=== PATIENT | male | born 1940 | race African-American/Black ===

== ENCOUNTER 2020-11-24 02:44 | Inpatient (IN) | payer OTHER ==
[~2020-11-24] VITALS: Ht 182.9 cm; Wt 74.4 kg
[2020-11-24] MEDS ORDERED: LEVETIRACETAM 500MG PREMIX 100 ML IV ONE (03:15)
[2020-11-24] MEDS ORDERED: SODIUM CHLORIDE 0.9% 1,000 ML IV ONE (03:15)
[2020-11-24 03:58] LABS: HEMOGLOBIN. 14.7 g/dL (14.0-18.0); MEAN CORPUSCULAR HEMOGLOBIN 35.4 pg (28.0-32.0)
[2020-11-24 04:01] LABS: HEMATOCRIT. 45.5 % (42.0-52.0); MEAN CORPUSCULAR VOLUME 109.7 fL (80.0-94.0); MEAN PLATELET VOLUME 10.3 fl (7.4-10.4); PLATELET 258 x1000/uL (130-400); RED BLOOD CELL COUNT 4.14 mill/uL (4.7-6.1)
[2020-11-24 04:04] LABS: CHLORIDE 103 mEq/L (98-107)
[2020-11-24 04:08] LABS: ETHANOL BLOOD < 10 mg/dL
[2020-11-24] MEDS ORDERED: IOHEXOL-350 100 ML BOTTLE ONE (04:14)
[2020-11-24] MEDS ORDERED: DEXAMETHASONE 10 MG/ML VIAL IV ONE (04:30)
[2020-11-24] MEDS: MANNITOL 20% (20GM/100ML) BAG 500ML PREMIX IV NR ×2 (05:30→06:30)
[2020-11-24 08:43] LABS: NUCLEATED RED BLOOD CELLS 2 /100 WBC; PLATELET ESTIMATE NORMAL
[2020-11-24] MEDS ORDERED: LEVETIRACETAM 500 MG in SODIUM CHLORIDE 0.9% 100 ML IV SCH (11:45)
[2020-11-24] MEDS ORDERED: PIPERACILLIN/TAZOBACTAM 3.375 G in DEXT 5% WATER 100 ML IV SCH (11:45)
[2020-11-24] MEDS ORDERED: ONDANSETRON HCL 4MG/2ML INJ IV PRN (11:45)
[2020-11-24] MEDS ORDERED: PIPERACILLIN/TAZ 3.375G PREMIX 50 ML IV NR (14:45)
[2020-11-24] MEDS ORDERED: LEVETIRACETAM 500MG PREMIX 100 ML IV NR (14:45)
[2020-11-24] MEDS ORDERED: ALBUTEROL 6.7GM HFA INHALER ORI PRN (15:00)
[2020-11-24] MEDS: DEXT 5%/LACTATED RINGERS 1,000 ML IV SCH (15:12)
[2020-11-24 15:38] LABS: BG BASE EXCESS -0.5 mmol/L (-2.0-2.0); BG CARBOXYHEMOGLOBIN 0.7 % (0.5-1.5); BG DEOXYHEMOGLOBIN 2.2 % (0.0-5.0); BG FRACTION INSPIRED OXYGEN 36; BG HCO3 ACT 22.2 mmol/L (22.0-26.0); BG METHEMOGLOBIN 0.9 % (0.0-1.5); BG OXYGEN SATURATION 97.8 % (92.0-98.5); BG OXYHEMOGLOBIN 96.2 % (94.0-97.0); BG PCO2 31.2 mmHg (35.0-45.0); BG PO2 96.8 mmHg (75.0-100.0); BG SAMPLE SITE RIGHT RADIAL; BG TOTAL HEMOGLOBIN 14.8 g/dL (12.0-18.0); BG VENT MODE NASAL CANNULA
[2020-11-24] MEDS: PIPERACILLIN/TAZOBACTAM 3.375 G in DEXT 5% WATER 100 ML IV SCH (19:16)
[2020-11-24] MEDS: LEVETIRACETAM 500MG PREMIX 100 ML IV SCH (22:50)
[2020-11-24] MEDS: DEXAMETHASONE 4MG/ML 1ML VIAL IV SCH (22:50)
[2020-11-25] VITALS (86 sets, daily range): BP systolic 66–170; BP diastolic 35–138
[2020-11-25] MEDS: DEXAMETHASONE 4MG/ML 1ML VIAL IV SCH ×4 (03:02→21:17)
[2020-11-25] MEDS: NICARDIPINE 100 MG in SODIUM CHLORIDE 0.9% 60 ML IV PRN ×2 (03:03→09:55)
[2020-11-25] MEDS: LABETALOL 5MG/ML SYR 20 MG/4 ML SYRINGE IV PRN (03:04)
[2020-11-25] MEDS: PIPERACILLIN/TAZOBACTAM 3.375 G in DEXT 5% WATER 100 ML IV SCH ×4 (04:13→20:44)
[2020-11-25 06:07] LABS: BASOPHILS % 0.9 % (0.0-2.0); EOSINOPHILS % 0.1 % (0.0-5.0); HEMATOCRIT. 40.7 % (42.0-52.0); HEMOGLOBIN. 13.7 g/dL (14.0-18.0); LYMPHOCYTES % 7.6 % (20.0-50.0); MEAN CORPUSCULAR VOLUME 106.6 fL (80.0-94.0); MEAN PLATELET VOLUME 9.7 fl (7.4-10.4); MONOCYTES % 3.6 % (2.0-8.0); NEUTROPHILS % 87.8 % (40.0-76.0); PLATELET 158 x1000/uL (130-400); RED BLOOD CELL COUNT 3.82 mill/uL (4.7-6.1)
[2020-11-25] MEDS: DILTIAZEM HCL 125 MG in DEXT 5% WATER 100 ML IV PRN ×2 (06:38→15:56)
[2020-11-25] MEDS: DEXT 5%/LACTATED RINGERS 1,000 ML IV SCH (08:34)
[2020-11-25] MEDS: LEVETIRACETAM 500MG PREMIX 100 ML IV SCH ×2 (10:04→21:17)
[2020-11-25] MEDS: PANTOPRAZOLE SODIUM 40 MG/VIAL IV SCH (10:05)
[2020-11-25] MEDS ORDERED: GADOTERATE MEGLUMINE 5 MMOL/10 ML VIAL IV ONE (10:28)
[2020-11-25] MEDS ORDERED: DIGOXIN 500MCG/2ML AMP IV SCH ×3 (13:30→17:30)
[2020-11-25] MEDS ORDERED: PROPOFOL 10 MG/ML 100 ML IV PRN (23:15)
[2020-11-26] VITALS (89 sets, daily range): BP systolic 99–174; BP diastolic 58–137
[2020-11-26] MEDS: DEXAMETHASONE 4MG/ML 1ML VIAL IV SCH ×4 (03:02→21:52)
[2020-11-26] MEDS: PIPERACILLIN/TAZOBACTAM 3.375 G in DEXT 5% WATER 100 ML IV SCH ×4 (03:02→20:45)
[2020-11-26 06:24] LABS: BASOPHILS % 0.5 % (0.0-2.0); EOSINOPHILS % 0.1 % (0.0-5.0); HEMATOCRIT. 36.9 % (42.0-52.0); HEMOGLOBIN. 12.5 g/dL (14.0-18.0); LYMPHOCYTES % 4.5 % (20.0-50.0); MEAN CORPUSCULAR HEMOGLOBIN 35.9 pg (28.0-32.0); MEAN PLATELET VOLUME 10.1 fl (7.4-10.4); NEUTROPHILS % 92.9 % (40.0-76.0); PLATELET 184 x1000/uL (130-400); RED BLOOD CELL COUNT 3.48 mill/uL (4.7-6.1); RED CELL DISTRIBUTION WIDTH 16.5 % (11.6-14.6)
[2020-11-26] MEDS: DEXT 5%/LACTATED RINGERS 1,000 ML IV SCH (09:59)
[2020-11-26] MEDS: LEVETIRACETAM 500MG PREMIX 100 ML IV SCH ×2 (10:00→20:45)
[2020-11-26] MEDS: PANTOPRAZOLE SODIUM 40 MG/VIAL IV SCH (10:00)
[2020-11-26] MEDS ORDERED: IOHEXOL-300 100 ML BOTTLE ONE (14:26)
[2020-11-26] MEDS ORDERED: LORAZEPAM 2MG/ML CPJ IV PRN (17:30)
[2020-11-26] MEDS: NICARDIPINE 100 MG in SODIUM CHLORIDE 0.9% 60 ML IV PRN (22:03)
[2020-11-26] MEDS: LABETALOL 5MG/ML SYR 20 MG/4 ML SYRINGE IV PRN (23:21)
[2020-11-26] MEDS: DILTIAZEM HCL 125 MG in DEXT 5% WATER 100 ML IV PRN (23:58)
[2020-11-27] VITALS (98 sets, daily range): BP systolic 100–156; BP diastolic 49–93
[2020-11-27] MEDS: DEXAMETHASONE 4MG/ML 1ML VIAL IV SCH ×4 (02:10→20:31)
[2020-11-27] MEDS: PIPERACILLIN/TAZOBACTAM 3.375 G in DEXT 5% WATER 100 ML IV SCH ×4 (02:10→20:23)
[2020-11-27] MEDS: DEXT 5%/LACTATED RINGERS 1,000 ML IV SCH ×2 (04:30→21:00)
[2020-11-27] MEDS: PANTOPRAZOLE SODIUM 40 MG/VIAL IV SCH (08:18)
[2020-11-27] MEDS: LEVETIRACETAM 500MG PREMIX 100 ML IV SCH ×2 (08:19→20:23)
[2020-11-27 10:52] LABS: HEMATOCRIT. 38.9 % (42.0-52.0); HEMOGLOBIN. 13.5 g/dL (14.0-18.0); MEAN CORPUSCULAR HEMOGLOBIN 36.5 pg (28.0-32.0); MEAN CORPUSCULAR VOLUME 105.1 fL (80.0-94.0); PLATELET 215 x1000/uL (130-400); RED CELL DISTRIBUTION WIDTH 16.5 % (11.6-14.6)
[2020-11-27 11:02] LABS: CHLORIDE 112 mEq/L (98-107)
[2020-11-27] MEDS: DILTIAZEM HCL 125 MG in DEXT 5% WATER 100 ML IV PRN ×2 (11:12→21:00)
[2020-11-27] MEDS: DILTIAZEM HCL 90MG TABLET PO SCH ×2 (12:00→18:00)
[2020-11-27 15:11] LABS: PLATELET ESTIMATE NORMAL
[2020-11-27] MEDS: NICARDIPINE 100 MG in SODIUM CHLORIDE 0.9% 60 ML IV PRN (16:15)
[2020-11-27] MEDS: DIGOXIN 500MCG/2ML AMP IV SCH (17:22)
[2020-11-27 22:26] LABS: CHLORIDE 112 mEq/L (98-107)
[2020-11-28] VITALS (79 sets, daily range): BP systolic 110–164; BP diastolic 55–101
[2020-11-28] MEDS: PIPERACILLIN/TAZOBACTAM 3.375 G in DEXT 5% WATER 100 ML IV SCH ×4 (02:28→20:20)
[2020-11-28] MEDS: DEXAMETHASONE 4MG/ML 1ML VIAL IV SCH ×4 (02:30→20:30)
[2020-11-28] MEDS: DILTIAZEM HCL 90MG TABLET PO SCH ×4 (06:00→17:56)
[2020-11-28 06:44] LABS: HEMATOCRIT. 35.4 % (42.0-52.0); HEMOGLOBIN. 12.1 g/dL (14.0-18.0); MEAN CORPUSCULAR HEMOGLOBIN 36.2 pg (28.0-32.0); MEAN CORPUSCULAR VOLUME 105.8 fL (80.0-94.0); MEAN PLATELET VOLUME 10.3 fl (7.4-10.4); PLATELET 187 x1000/uL (130-400); RED BLOOD CELL COUNT 3.34 mill/uL (4.7-6.1); RED CELL DISTRIBUTION WIDTH 16.3 % (11.6-14.6)
[2020-11-28 06:53] LABS: CHLORIDE 112 mEq/L (98-107)
[2020-11-28] MEDS: LEVETIRACETAM 500MG PREMIX 100 ML IV SCH ×2 (10:45→20:20)
[2020-11-28] MEDS: PANTOPRAZOLE SODIUM 40 MG/VIAL IV SCH (10:45)
[2020-11-28 16:36] LABS: INR 1.4; PROTHROMBIN TIME 14.5 sec (9.6-11.0)
[2020-11-28] MEDS: DIGOXIN 500MCG/2ML AMP IV SCH (17:57)
[2020-11-28 18:28] LABS: PLATELET ESTIMATE NORMAL
[2020-11-28] MEDS: DEXT 5%/LACTATED RINGERS 1,000 ML IV SCH (20:33)
[2020-11-29] VITALS (97 sets, daily range): BP systolic 0–181; BP diastolic 0–92
[2020-11-29] MEDS: PIPERACILLIN/TAZOBACTAM 3.375 G in DEXT 5% WATER 100 ML IV SCH ×4 (03:25→21:28)
[2020-11-29] MEDS: NICARDIPINE 100 MG in SODIUM CHLORIDE 0.9% 60 ML IV PRN ×3 (03:49→18:28)
[2020-11-29 05:26] LABS: HEMATOCRIT. 37.6 % (42.0-52.0); HEMOGLOBIN. 12.5 g/dL (14.0-18.0); MEAN CORPUSCULAR HEMOGLOBIN 35.1 pg (28.0-32.0); MEAN CORPUSCULAR VOLUME 105.4 fL (80.0-94.0); MEAN PLATELET VOLUME 10.3 fl (7.4-10.4); PLATELET 169 x1000/uL (130-400); RED BLOOD CELL COUNT 3.57 mill/uL (4.7-6.1); RED CELL DISTRIBUTION WIDTH 15.9 % (11.6-14.6)
[2020-11-29 05:32] LABS: CHLORIDE 113 mEq/L (98-107)
[2020-11-29 05:37] LABS: INR 1.3; PROTHROMBIN TIME 13.7 sec (9.6-11.0)
[2020-11-29 05:50] LABS: NUCLEATED RED BLOOD CELLS 3 /100 WBC; PLATELET ESTIMATE NORMAL
[2020-11-29] MEDS: DILTIAZEM HCL 90MG TABLET PO SCH ×5 (06:00→23:00)
[2020-11-29] MEDS ORDERED: LIDOCAINE HCL/EPINEPHRINE 1%-EPI 1:100,000 20 ML VIAL ONE (06:29)
[2020-11-29] MEDS ORDERED: BACITRACIN 50,000 UNITS/VIAL ONE (06:29)
[2020-11-29] MEDS ORDERED: BACITRACIN 15GM TUBE TOP ONE (06:29)
[2020-11-29] MEDS ORDERED: THROMBIN (BOVINE) 5000 UNITS/VIAL TOP ONE (06:29)
[2020-11-29] MEDS ORDERED: NICARDIPINE 40MG/200ML PREMIX 200 ML IV ONE (06:42)
[2020-11-29] MEDS ORDERED: NICARDIPINE 40MG/200ML PREMIX 0 ML IV ONE (06:42)
[2020-11-29] MEDS ORDERED: ACETAMINOPHEN 500MG TABLET ONE (06:43)
[2020-11-29] MEDS ORDERED: FENTANYL CITRATE/PF 50MCG/ML 2ML VIAL ONE (06:56)
[2020-11-29] MEDS ORDERED: ROCURONIUM BROMIDE 10MG/ML VIAL 5ML IV ONE (06:56)
[2020-11-29] MEDS ORDERED: MANNITOL 20% 500 ML IV ONE (06:58)
[2020-11-29] MEDS ORDERED: SODIUM CHLORIDE 0.9% 10ML VIAL ONE (06:59)
[2020-11-29] MEDS ORDERED: LEVETIRACETAM 500MG PREMIX 100 ML IV ONE (06:59)
[2020-11-29] MEDS ORDERED: PROPOFOL 200MG/20ML VIAL IV ONE (06:59)
[2020-11-29] MEDS ORDERED: LABETALOL HCL 5MG/ML VIAL 20ML IV ONE (07:00)
[2020-11-29] MEDS ORDERED: PHENYLEPHRINE HCL 10 MG/ML 1ML (IV VIAL) IV ONE (07:00)
[2020-11-29] MEDS ORDERED: LIDOCAINE HCL/PF 1% 10 MG/ML 5ML VIAL ONE (07:13)
[2020-11-29] MEDS ORDERED: DEXAMETHASONE 4MG/ML 1ML VIAL ONE (07:34)
[2020-11-29] MEDS ORDERED: PROPOFOL 10MG/ML 100ML 100 ML IV ONE (07:58)
[2020-11-29] MEDS ORDERED: HYDROMORPHONE HCL/PF 2MG/ML (OR) ONE (08:52)
[2020-11-29] MEDS ORDERED: ESMOLOL HCL 10MG/ML 10ML VIAL IV ONE (08:53)
[2020-11-29] MEDS: PANTOPRAZOLE SODIUM 40 MG/VIAL IV SCH (09:00)
[2020-11-29] MEDS: LEVETIRACETAM 500MG PREMIX 100 ML IV SCH ×2 (09:00→20:28)
[2020-11-29 09:06] LABS: BG BASE EXCESS -2.6 mmol/L (-2.0-2.0); BG CARBOXYHEMOGLOBIN 0.3 % (0.5-1.5); BG DEOXYHEMOGLOBIN 0.7 % (0.0-5.0); BG FRACTION INSPIRED OXYGEN 100%; BG HCO3 ACT 21.3 mmol/L (22.0-26.0); BG METHEMOGLOBIN 0.8 % (0.0-1.5); BG OXYGEN SATURATION 99.3 % (92.0-98.5); BG OXYHEMOGLOBIN 98.2 % (94.0-97.0); BG PCO2 34.1 mmHg (35.0-45.0); BG PH 7.414 (7.350-7.450); BG PO2 415.1 mmHg (75.0-100.0); BG TOTAL HEMOGLOBIN 12.2 g/dL (12.0-18.0)
[2020-11-29] MEDS ORDERED: NEOSTIGMINE METHYLSULFATE 1MG/ML 10 ML VIAL ONE (09:19)
[2020-11-29] MEDS ORDERED: GLYCOPYRROLATE 0.2 MG/ML 2ML VIAL ONE (09:20)
[2020-11-29] MEDS: MORPHINE SULFATE 4 MG/ML CPJ (NOT FOR IM USE) IV PRN ×4 (11:14→20:57)
[2020-11-29] MEDS ORDERED: POTASSIUM CHLORIDE 20MEQ TABLET SR PO NR (13:00)
[2020-11-29] MEDS: DEXT 5%/LACTATED RINGERS 1,000 ML IV SCH (13:23)
[2020-11-29] MEDS ORDERED: CEFAZOLIN SODIUM 1000MG/VIAL IV SCH (14:00)
[2020-11-29] MEDS: CEFAZOLIN 1000MG PREMIX 50 ML IV SCH ×2 (15:05→22:12)
[2020-11-29 15:07] LABS: HEMATOCRIT. 37.9 % (42.0-52.0); HEMOGLOBIN. 12.5 g/dL (14.0-18.0); MEAN CORPUSCULAR HEMOGLOBIN 34.9 pg (28.0-32.0); MEAN CORPUSCULAR VOLUME 106.2 fL (80.0-94.0); MEAN PLATELET VOLUME 10.2 fl (7.4-10.4); PLATELET 181 x1000/uL (130-400); RED BLOOD CELL COUNT 3.57 mill/uL (4.7-6.1); RED CELL DISTRIBUTION WIDTH 16.1 % (11.6-14.6)
[2020-11-29 15:38] LABS: PLATELET ESTIMATE NORMAL
[2020-11-29] MEDS ORDERED: MORPHINE SULFATE 2 MG/ML CPJ (NOT FOR IM USE) IV NR (16:15)
[2020-11-29] MEDS ORDERED: KCL 20MEQ/100ML PREMIX 100 ML IV NR (16:30)
[2020-11-29] MEDS: DIGOXIN 500MCG/2ML AMP IV SCH (17:44)
[2020-11-30] VITALS (87 sets, daily range): BP systolic 84–184; BP diastolic 33–83
[2020-11-30] MEDS: MORPHINE SULFATE 4 MG/ML CPJ (NOT FOR IM USE) IV PRN ×5 (00:13→23:01)
[2020-11-30] MEDS: NICARDIPINE 100 MG in SODIUM CHLORIDE 0.9% 60 ML IV PRN ×2 (01:53→08:28)
[2020-11-30] MEDS: PIPERACILLIN/TAZOBACTAM 3.375 G in DEXT 5% WATER 100 ML IV SCH (02:21)
[2020-11-30] MEDS: CEFAZOLIN 1000MG PREMIX 50 ML IV SCH ×2 (05:11→15:24)
[2020-11-30] MEDS: DILTIAZEM HCL 90MG TABLET PO SCH ×4 (05:37→23:40)
[2020-11-30 06:40] LABS: HEMATOCRIT. 34.5 % (42.0-52.0); HEMOGLOBIN. 11.4 g/dL (14.0-18.0); MEAN CORPUSCULAR HEMOGLOBIN 35.4 pg (28.0-32.0); MEAN CORPUSCULAR VOLUME 106.9 fL (80.0-94.0); MEAN PLATELET VOLUME 10.9 fl (7.4-10.4); PLATELET 146 x1000/uL (130-400); RED BLOOD CELL COUNT 3.23 mill/uL (4.7-6.1); RED CELL DISTRIBUTION WIDTH 16.1 % (11.6-14.6)
[2020-11-30 06:55] LABS: CHLORIDE 114 mEq/L (98-107)
[2020-11-30] MEDS: DEXT 5%/LACTATED RINGERS 1,000 ML IV SCH (06:55)
[2020-11-30] MEDS ORDERED: MORPHINE SULFATE 2 MG/ML CPJ (NOT FOR IM USE) IV SCH (07:00)
[2020-11-30] MEDS: PANTOPRAZOLE SODIUM 40 MG/VIAL IV SCH (08:27)
[2020-11-30] MEDS: LEVETIRACETAM 500MG PREMIX 100 ML IV SCH ×2 (08:28→20:07)
[2020-11-30] MEDS: HYDRALAZINE 20MG/ML VIAL IV PRN (10:28)
[2020-11-30] MEDS ORDERED: CLONIDINE HCL 0.3MG/24HR PATCH TD SCH (13:00)
[2020-11-30 15:17] LABS: NUCLEATED RED BLOOD CELLS 1 /100 WBC
[2020-11-30 15:18] LABS: PLATELET ESTIMATE NORMAL
[2020-11-30] MEDS: DIGOXIN 500MCG/2ML AMP IV SCH (18:47)
[2020-12-01] VITALS (87 sets, daily range): BP systolic 85–160; BP diastolic 45–130
[2020-12-01] MEDS: MORPHINE SULFATE 4 MG/ML CPJ (NOT FOR IM USE) IV PRN (03:06)
[2020-12-01] MEDS: DILTIAZEM HCL 90MG TABLET PO SCH ×3 (05:10→17:03)
[2020-12-01] MEDS: DEXT 5%/LACTATED RINGERS 1,000 ML IV SCH ×2 (05:13→12:41)
[2020-12-01 08:04] LABS: HEMATOCRIT. 35.2 % (42.0-52.0); HEMOGLOBIN. 11.6 g/dL (14.0-18.0); MEAN CORPUSCULAR HEMOGLOBIN 35.4 pg (28.0-32.0); MEAN PLATELET VOLUME 11.6 fl (7.4-10.4); PLATELET 111 x1000/uL (130-400); RED BLOOD CELL COUNT 3.29 mill/uL (4.7-6.1); RED CELL DISTRIBUTION WIDTH 15.7 % (11.6-14.6)
[2020-12-01 08:35] LABS: CHLORIDE 114 mEq/L (98-107)
[2020-12-01] MEDS: LEVETIRACETAM 500MG PREMIX 100 ML IV SCH ×2 (10:23→20:15)
[2020-12-01] MEDS: PANTOPRAZOLE SODIUM 40 MG/VIAL IV SCH (10:23)
[2020-12-01] MEDS: DILTIAZEM HCL 125 MG in DEXT 5% WATER 100 ML IV PRN ×2 (10:25→21:38)
[2020-12-01] MEDS: NICARDIPINE 100 MG in SODIUM CHLORIDE 0.9% 60 ML IV PRN (12:40)
[2020-12-01 16:16] LABS: NUCLEATED RED BLOOD CELLS 1 /100 WBC
[2020-12-01 16:17] LABS: PLATELET ESTIMATE DECREASED
[2020-12-01] MEDS: DIGOXIN 500MCG/2ML AMP IV SCH (18:48)
[2020-12-02] VITALS (90 sets, daily range): BP systolic 78–168; BP diastolic 33–120
[2020-12-02] MEDS: DEXT 5%/LACTATED RINGERS 1,000 ML IV SCH ×2 (02:03→22:12)
[2020-12-02] MEDS: DILTIAZEM HCL 90MG TABLET PO SCH ×5 (06:00→23:33)
[2020-12-02 06:58] LABS: HEMOGLOBIN. 12.4 g/dL (14.0-18.0); MEAN CORPUSCULAR HEMOGLOBIN 34.8 pg (28.0-32.0); MEAN CORPUSCULAR VOLUME 106.4 fL (80.0-94.0); MEAN PLATELET VOLUME 11.6 fl (7.4-10.4); PLATELET 119 x1000/uL (130-400); RED BLOOD CELL COUNT 3.57 mill/uL (4.7-6.1); RED CELL DISTRIBUTION WIDTH 15.7 % (11.6-14.6)
[2020-12-02 07:11] LABS: CHLORIDE 113 mEq/L (98-107)
[2020-12-02] MEDS: PANTOPRAZOLE SODIUM 40 MG/VIAL IV SCH (10:07)
[2020-12-02] MEDS: LEVETIRACETAM 500MG PREMIX 100 ML IV SCH ×2 (10:07→22:12)
[2020-12-02] MEDS: DILTIAZEM HCL 125 MG in DEXT 5% WATER 100 ML IV PRN ×2 (10:17→22:08)
[2020-12-02] MEDS ORDERED: POTASSIUM CHLORIDE INJ 40 MEQ in SODIUM CHLORIDE 0.9% 250 ML IV NR (13:00)
[2020-12-02 16:28] LABS: PLATELET ESTIMATE SLIGHTLY DECREASED
[2020-12-02] MEDS: DIGOXIN 500MCG/2ML AMP IV SCH (17:49)
[2020-12-03] VITALS (89 sets, daily range): BP systolic 101–159; BP diastolic 55–97
[2020-12-03] MEDS: DILTIAZEM HCL 90MG TABLET PO SCH ×3 (06:13→17:36)
[2020-12-03] MEDS: LEVETIRACETAM 500MG PREMIX 100 ML IV SCH ×2 (09:17→21:17)
[2020-12-03] MEDS: PANTOPRAZOLE SODIUM 40 MG/VIAL IV SCH (09:17)
[2020-12-03 12:14] LABS: HEMATOCRIT 40.7 % (42.0-52.0); HEMOGLOBIN 13.2 g/dL (14.0-18.0); MEAN CORPUSCULAR HEMOGLOBIN 34.9 pg (28.0-32.0); PLATELET 131 x1000/uL (130-400); RED CELL DISTRIBUTION WIDTH 15.6 % (11.6-14.6)
[2020-12-03 12:19] LABS: CHLORIDE 115 mEq/L (98-107)
[2020-12-03] MEDS: HYDRALAZINE 20MG/ML VIAL IV PRN (14:32)
[2020-12-03] MEDS: DEXT 5%/LACTATED RINGERS 1,000 ML IV SCH (14:36)
[2020-12-03] MEDS ORDERED: ACETAMINOPHEN 325MG TABLET PO PRN (17:30)
[2020-12-03] MEDS: DIGOXIN 500MCG/2ML AMP IV SCH (17:38)
[2020-12-04] VITALS (87 sets, daily range): BP systolic 100–166; BP diastolic 47–110
[2020-12-04] MEDS: DILTIAZEM HCL 90MG TABLET PO SCH ×4 (00:09→17:24)
[2020-12-04] MEDS: LEVETIRACETAM 500MG PREMIX 100 ML IV SCH ×2 (09:20→20:39)
[2020-12-04] MEDS: HYDRALAZINE 20MG/ML VIAL IV PRN (09:20)
[2020-12-04] MEDS: PANTOPRAZOLE SODIUM 40 MG/VIAL IV SCH (09:20)
[2020-12-04] MEDS: DEXT 5%/LACTATED RINGERS 1,000 ML IV SCH (09:21)
[2020-12-04] MEDS: METOPROLOL TARTRATE 25MG TABLET PO SCH ×2 (12:18→20:39)
[2020-12-04 16:32] LABS: CLARITY URINE TURBID (CLEAR); COLOR URINE DARK YELLOW (YELLOW); KETONES URINE NEGATIVE (NEGATIVE); LEUKOCYTE ESTERASE URINE 1+ (NEGATIVE); NITRITE URINE NEGATIVE (NEGATIVE); OCCULT BLOOD URINE 2+ (NEGATIVE); PROTEIN URINE 2+ (NEGATIVE); SPECIFIC GRAVITY URINE 1.027 (1.005-1.030)
[2020-12-04] MEDS ORDERED: DIGOXIN 125MCG TABLET PO SCH (18:00)
[2020-12-05] VITALS (35 sets, daily range): BP systolic 115–178; BP diastolic 60–107
[2020-12-05] MEDS: DILTIAZEM HCL 90MG TABLET PO SCH ×3 (01:04→13:05)
[2020-12-05] MEDS: DEXT 5%/LACTATED RINGERS 1,000 ML IV SCH (02:02)
[2020-12-05] MEDS: PANTOPRAZOLE SODIUM 40 MG/VIAL IV SCH (09:02)
[2020-12-05] MEDS: METOPROLOL TARTRATE 25MG TABLET PO SCH (09:02)
[2020-12-05] MEDS: LEVETIRACETAM 500MG PREMIX 100 ML IV SCH (09:02)
[2020-12-05] MEDS ORDERED: METOPROLOL TARTRATE 50MG TABLET PO SCH (21:00)
== END 2020-12-05 17:00 | disposition home or self-care (01) | DRG 23 ==
LOC: ER 02:44 → EDBD 02:44 → 5EST 06:22 → EDBEDREQSVC 15:57 → ENRESERV 21:56 → 5EST 11-29 10:45
PROVIDERS: ADMIT Internal Medicine; ATTEND Internal Medicine
PROC: 00U207Z Supplement Dura Mater with Autologous Tissue Substitute, Open Approach (ICD-10-PCS; principal; 2020-11-29)
PROC: 0NR00JZ Replacement of Skull with Synthetic Substitute, Open Approach (ICD-10-PCS; 2020-11-29)
PROC: 00B00ZX Excision of Brain, Open Approach, Diagnostic (ICD-10-PCS; 2020-11-29)
PROC: 30233K1 Transfusion of Nonautologous Frozen Plasma into Peripheral Vein, Percutaneous Approach (ICD-10-PCS; 2020-11-29)
DX: I61.1 Nontraumatic intracerebral hemorrhage in hemisphere, cortical (principal); J96.00 Acute respiratory failure, unspecified whether with hypoxia or hypercapnia; J18.9 Pneumonia, unspecified organism; G93.41 Metabolic encephalopathy; C71.8 Malignant neoplasm of overlapping sites of brain; C79.31 Secondary malignant neoplasm of brain; E87.0 Hyperosmolality and hypernatremia; Z66 Do not resuscitate; R56.9 Unspecified convulsions; I48.91 Unspecified atrial fibrillation; I10 Essential (primary) hypertension; I25.10 Atherosclerotic heart disease of native coronary artery without angina pectoris; I65.21 Occlusion and stenosis of right carotid artery; Z79.899 Other long term (current) drug therapy; Z78.1 Physical restraint status; Z20.822 Contact with and (suspected) exposure to COVID-19; S30.0XXA Contusion of lower back and pelvis, initial encounter
CPT/HCPCS: 36415; 36600; 70496; 70498; 70553; 71045; 71260; 74177; 76998; 80048; 80053; 80061; 80162; 80320; 81003; 82375; 82805; 82962; 84443; 85025; 85027; 86850; 86900; 86927; 87426; 87635; 88309; 88331; 92610; 93005; 93306; 96365; 96375; 97112; 97162; 97164; 97166; 97530; 99291; 99292; A6261; A9577; C1713; C1725; C9113; J0360; J0690; J1100; J1160; J1170; J1953; J2270; J2370; J2543; J2704; J2710; J3010; J3480; J3490; J7030; J7050; J7060; J7120; P9017; Q9967; A4315; G0480

== ENCOUNTER 2020-12-08 04:30 | Emergency (ER) | payer OTHER ==
[~2020-12-08] VITALS: Ht 182.9 cm; Wt 100.0 kg
[~2020-12-08 04:30] MED LIST: AMIODARONE HCL 50MG/ML 3ML VIAL IV ONE; ATROPINE SULFATE 1MG/10ML SYR ONE; EPINEPHRINE 0.1MG/ML (1:10,000) 10ML SYR ONE; ETOMIDATE 2MG/ML 10ML VIAL IV ONE; SODIUM BICARBONATE 8.4% 1 MEQ/ML 50ML SYR IV ONE; SUCCINYLCHOLINE CHLORIDE 200MG/10ML IV ONE
[2020-12-08] MEDS ORDERED: AZITHROMYCIN 500 MG in DEXT 5% WATER 250 ML IV ONE (05:15)
[2020-12-08] MEDS ORDERED: SODIUM CHLORIDE 0.9% 1000ML BAG (SEPSIS BOLUS) IV ONE (05:15)
[2020-12-08] MEDS ORDERED: VANCOMYCIN 1 G PREMIX 200 ML IV ONE (05:15)
[2020-12-08] MEDS ORDERED: NOREPINEPHRINE 8MG/250ML PMX 250 ML IV ONE (05:15)
[2020-12-08] MEDS ORDERED: PIPERACILLIN/TAZ 3.375G PREMIX 50 ML IV ONE (05:15)
[2020-12-08] MEDS ORDERED: NOREPINEPHRINE 8 MG in DEXTROSE 5% WATER 250 ML IV PRN (05:30)
[2020-12-08 05:40] VITALS: BP 0/0
== END 2020-12-08 06:40 | disposition expired ==
LOC: ER 04:44 → EDBEDREQSVC 05:33 → EDBEDREQTM 05:33 → EDBEDREQ 05:33 → CANBEDREQ 05:45 → ER 06:40
DX: I46.9 Cardiac arrest, cause unspecified (principal); J96.90 Respiratory failure, unspecified, unspecified whether with hypoxia or hypercapnia; I10 Essential (primary) hypertension; Z98.890 Other specified postprocedural states
CPT/HCPCS: 31500; 92950; 93005; 99291; J0282; J0330; J0456; J0461; J3490; J7030; J7060